=== PATIENT | male | born 1965 ===

== ENCOUNTER 2023-08-20 14:30 | Outpatient (AMB) | payer MEDICARE, MEDICAID, SELFPAY ==
--- NOTE | 2023-08-20 14:37 | MHC.OFFVIS ---
Vital Signs 08/20/23 14:39 Height 5 ft 6 in Weight 180 lb 4 oz BMI 29.1 BP 139/73 Blood Pressure Location Lt brachial Position Sitting Respiration 16 Pulse 60 Pulse Source Pulse Oximeter Pulse Oximetry (%) 96 Oxygen Delivery Method Room Air Intake Visit Reasons: Multiple sclerosis Allergies No Known Allergies Allergy (Verified 08/20/23 14:46) HPI Comments Details: Robson is a very pleasant 58-year-old male who presents to the office today for evaluation management of his left arm pain He complains of pain in left shoulder radiating down to the left thumb, worse in the night. He patient has been suffering with this pain for approximately 4 years. He had ACDF C5/C7 December of 2023 bal[facility]ir Marte at [facility]. Followed up 3 weeks after surgery and has not been evaluated in neurosurgery office since. After surgery left upper extremity strength improved but the pain persisted. He reports pain is basically unchanged, maybe slightly worse than it was before surgery. Pain today is rated a 6/10, constant but worse in the night. Patient completed physical therapy about 2 years ago without improvement of symptoms. He has never been to acupuncture or had injections. Uses massage home but pain persists Patient is currently taking baclofen, tizanidine, Tylenol and Motrin for his pain. He was on chronic opioids but his primary care symptoms 3 months ago. He is not interested in restarting opioid therapy. Trialed Lyrica 2 weeks ago but it made him feel dizzy so he stopped taking it. In the past he has tried gabapentin but it gave him brain fog. In terms of muscle damage condition is described as stabbing, hot, burning, exhausting, hurting, radiating, piercing. Pain is negatively impacting patient's enjoyment of life, sleep, ability to function normally, mood and recreational activities. Patient denies implantable devices, pacemaker, defibrillator. Review of Systems Const All systems reviewed & are unremarkable except as noted in HPI and below Physical Exam Vital Signs: Last Vital Signs Pulse 60 08/20/23 14:39 Resp 16 08/20/23 14:39 BP 139/73 08/20/23 14:39 Pulse Ox 96 08/20/23 14:39 Oxygen Delivery Method Room Air 08/20/23 14:39 BMI result Body Mass Index 29.1 General: awake, alert, oriented. Answers questions appropriately. Fully engaged in examination. Skin: warm, dry, intact HEENT: Normocephalic. Hearing intact. Cardiac: External chest normal in appearance. Respiratory: No cough, audible wheezing or stridor. Abdomen: without gross distension. MS: No obvious swelling or deformities. Able to stand on bilateral tiptoes and bilateral heels.? Able to transition from sit to stand unassisted. Ambulates with bilaterally normal heel strike and toe off Spurling positive Decreased cervical range motion all planes Tenderness left upper middle trapezius without palpable trigger points Elvey tension positive left BUE strength 5/5 Neurological: Oriented to person, place, time and situation. Thought process intact. No gait abnormalities appreciated. Psychiatric: Appropriate mood and affect. Good judgment and insight. Assessment & Plan Assessment & Plan (1) Postlaminectomy syndrome of cervical region: Comment: 12/2022 ACDF C5 & C7 Code(s): M96.1 - Postlaminectomy syndrome, not elsewhere classified Category: Medical Plan Robson is a very pleasant 58-year-old male who presented to the office today for evaluation management of his chronic neck pain. History, physical exam and provocative testing consistent with cervical radiculopathy in the setting of post laminectomy syndrome. New Rx: Amitriptyline 10 mg daily at bedtime for 1 week, then may increase to 20 mg at bedtime. Patient advised on cautions for use. Lengthy discussion with patient today regarding diagnosis and treatment options including diagnostic testing, epidural injections, peripheral nerve stimulation, RFA and spinal cord stimulation. He was given a pamphlet for spinal cord stimulator to review. Patient advised that this would require mental health evaluation prior to proceeding with any implantable device. We will need results of pending MRI prior to scheduling SCS trial. Continue with plan for MRI as ordered by [facility] center. Follow-up after MRI, sooner if needed Medications: New amitriptyline 10mg daily at bedtime for 1 week then may increase to 20mg daily at bedtime. 20 mg (2 x 10 mg) PO BEDTIME 60 tabs 1RF Coding Level of Care Code New Pt Level 4 (46029) Diagnoses Postlaminectomy syndrome of cervical region M96.1
[2023-08-20 14:39] VITALS: BP 139/73; PULSE 60; RESP 16; O2SAT 96; BMI 29.1
== END 2023-08-20 15:38 | disposition home or self-care (01) ==
PROVIDERS: PCP Physician Assistant; Visit Provider Registered Nurse Emergency
DX: M96.1 Postlaminectomy syndrome, not elsewhere classified (principal)
CPT/HCPCS: 99204

== ENCOUNTER → 2023-08-20 14:30 | Outpatient (BNVA) | payer MEDICARE, MEDICAID, SELFPAY | PROVIDERS: PCP Physician Assistant; Visit Provider Registered Nurse Emergency | DX: M96.1 Postlaminectomy syndrome, not elsewhere classified (principal); Z79.891 Long term (current) use of opiate analgesic; Z79.899 Other long term (current) drug therapy | CPT/HCPCS: 99202 ==